=== PATIENT | female | born 1980 | race Caucasian/White ===

== ENCOUNTER 2018-04-04 07:15 | Emergency (ER) | payer OTHER ==
[~2018-04-04] VITALS: Ht 170.2 cm; Wt 61.2 kg
[2018-04-04] MEDS ORDERED: PAXIL CR25 MG (07:43)
[2018-04-04] MEDS ORDERED: KETO10TA2 PO (09:00)
[2018-04-04] MEDS ORDERED: NORFLEX100MG PO (09:00)
== END 2018-04-04 09:12 | disposition home or self-care (01) ==
LOC: ER 07:15
DX: M54.2 Cervicalgia (principal)